=== PATIENT | female | born 1975 | race African-American/Black ===

== ENCOUNTER → 2017-06-22 | Outpatient (CLI) | payer BC ==
[~2017-06-22] MED LIST: ALBUTEROL; FLUOXETINE20 MG PO; GLUCOPHAGE500 MG/TAB PO; MILK THISTLE150 MG PO; NO HOME MEDICATIONS; PROAIR HFA0.09 MG/AC IH; PROBIOTIC-MAJOR PO; PULMICORT0.2 MG/AC1 IH; WELLBUTRIN XL300 M1 PO; [UNRECOGNIZED DRUG - OTHER] PO; [UNRECOGNIZED DRUG - OTHER] PO
== END ==
LOC: MC.RAD 13:37
DX: Z12.31 Encounter for screening mammogram for malignant neoplasm of breast (principal); R92.8 Other abnormal and inconclusive findings on diagnostic imaging of breast

== ENCOUNTER → 2017-07-17 | Outpatient (CLI) | payer BC | LOC: MC.RAD 12:56 | DX: N63.20 Unspecified lump in the left breast, unspecified quadrant (principal) ==

== ENCOUNTER → 2018-02-05 | Outpatient (CLI) | payer BC | LOC: MC.RAD 08:00 | DX: N63.20 Unspecified lump in the left breast, unspecified quadrant (principal) ==

== ENCOUNTER → 2018-04-03 | Outpatient (CLI) | payer BC | LOC: MC.RAD 10:00 | DX: N63.20 Unspecified lump in the left breast, unspecified quadrant (principal); Z98.82 Breast implant status | CPT/HCPCS: 30634 ==

== ENCOUNTER 2018-05-17 07:17 | Day surgery (SDC) | payer BC ==
[~2018-05-17] VITALS: Ht 167.6 cm; Wt 57.5 kg
--- NOTE | 2018-05-17 09:33 | NUR ---
Initial visit; Patient request prayer prior to surgical procedure. [employer] offered strength, encouragement and prayer.
[2018-05-17 09:55] VITALS: BP 130/90; PULSE 91; TEMP 98.1
[2018-05-17] MEDS ORDERED: SYEDA 3 MG-0.031 TAB PO (10:08)
[2018-05-17] MEDS ORDERED: ALDACTONE 25MG25 M1 PO (10:08)
[2018-05-17] MEDS ORDERED: PULMICORT180 MCG/Ac IH (10:09)
[2018-05-17] MEDS ORDERED: VENTOLIN0.09 MG IH (10:10)
[2018-05-17] MEDS ORDERED: NORCO 325 MG-51 TAB PO (11:15)
[2018-05-17 12:10] VITALS: BP 123/72; PULSE 84
--- NOTE | 2018-05-17 12:10 | NUR ---
Patient returns to room 2 per cart and is awake and alert. Temp 97.6 and room air sats 100%. Dressing clean and dry on the left breast. IV fluids infusing and site is free of redness. Siderails up x2 and call light in reach. Mother in room.
[2018-05-17 12:25] VITALS: BP 122/72; PULSE 81
--- NOTE | 2018-05-17 12:25 | NUR ---
Room air sats 99%. Resting and sipping on apple juice.
[2018-05-17 12:40] VITALS: BP 111/68; PULSE 87
--- NOTE | 2018-05-17 12:40 | NUR ---
Patient is eating chocolate pudding. Denies further nausea.
--- NOTE | 2018-05-17 12:45 | NUR ---
Patient assisted up to the bathroom and is able to void. Tolerates activity well. Denies pain or nausea.
[2018-05-17 13:10] VITALS: BP 123/72; PULSE 82; TEMP 97.6
--- NOTE | 2018-05-17 13:10 | NUR ---
Patient given dismissal instructions and voices understanding of these. Provided office number for questions and concerns. Follow up appointment made and given date and time.
--- NOTE | 2018-05-17 13:13 | NUR ---
Patient dismissed to home per private vehicle driven by spouse with instructions in hand. Taken to the front door per wheelchair and assisted into car by RN.
== END 2018-05-17 13:13 | disposition home or self-care (01) ==
LOC: SDCO 07:17
DX: N62 Hypertrophy of breast (principal); I10 Essential (primary) hypertension; E66.9 Obesity, unspecified; J45.909 Unspecified asthma, uncomplicated; Z79.899 Other long term (current) drug therapy; G47.33 Obstructive sleep apnea (adult) (pediatric); M13.851 Other specified arthritis, right hip; R73.03 Prediabetes
CPT/HCPCS: J2250; J2405; J2704; J3010; J7120

== ENCOUNTER 2022-06-25 19:13 | Emergency (ER) | payer BC ==
[~2022-06-25] VITALS: Ht 165.1 cm; Wt 129.5 kg
[~2022-06-25 19:13] MED LIST changes: +ALDACTONE 25MG25 M1 PO; +NORCO 325 MG-51 TAB PO; +PULMICORT180 MCG/Ac IH; +SYEDA 3 MG-0.031 TAB PO; +VENTOLIN0.09 MG IH
[2022-06-25 19:18] VITALS: TEMP 97.9
[2022-06-25 20:02] LABS: BASO % 0.3 % (0.0-2.0); EOS # 0.5 K/mm3 (0.0-0.7); GRAN # 8.5 K/mm3 (1.4-6.5); GRAN % 70.4 % (42.2-75.2); HEMOGLOBIN 12.5 g/dl (12.5-16.0); LYMPH # 2.2 K/mm3 (1.2-3.4); LYMPH % 18.1 % (20.0-51.0); MEAN CELL VOLUME 93 fl (80.0-100.0); MEAN CORPUSCULAR HEMOGLOBIN 30 pg (27-31); MEAN CORPUSCULAR HGB CONC 32 g/dl (33.0-37.0); MEAN PLATELET VOLUME 9.2 fl (7.4-10.4); MONO # 0.8 K/mm3 (0.1-0.6); MONO % 6.9 % (1.7-9.3); PLATELET COUNT 394 K/mm3 (130-400); RED BLOOD COUNT 4.19 M/mm3 (4.10-5.30)
[2022-06-25 20:20] LABS: ALBUMIN 3.4 gm/dL (3.5-5.0); BILIRUBIN,TOTAL 0.2 mg/dL (0.2-1.2); CALCIUM 9.4 mg/dL (8.4-10.2); CREATININE, serum 1.05 mg/dL (0.57-1.11); POTASSIUM 3.9 mmol/L (3.5-4.5); TOTAL PROTEIN 7.8 gm/dL (6.2-8.1)
[2022-06-25] MEDS ORDERED: PREDNISONE20 MG PO (21:17)
[2022-06-25] MEDS ORDERED: SINGULAIR 110 MG/TAB PO (21:17)
[2022-06-25] MEDS ORDERED: ZITHROMAX 250M250 MG PO (21:17)
[2022-06-25 21:31] VITALS: BP 139/104; PULSE 104
== END 2022-06-25 21:31 | disposition home or self-care (01) ==
LOC: COL.ER 19:13
PROVIDERS: Nurse Practitioner
DX: J20.9 Acute bronchitis, unspecified (principal); J45.909 Unspecified asthma, uncomplicated; Z79.51 Long term (current) use of inhaled steroids; Z20.822 Contact with and (suspected) exposure to COVID-19; Z88.1 Allergy status to other antibiotic agents
CPT/HCPCS: J7512